=== PATIENT | female | born 1945 | race Two or more races ===

== ENCOUNTER → 2022-08-10 | Outpatient (CLI) | payer OTHER | END | disposition home or self-care (01) | LOC: RAD 14:39 | PROVIDERS: ATTEND Internal Medicine Pulmonary Disease | DX: R05.3 Chronic cough (principal); J45.20 Mild intermittent asthma, uncomplicated; M99.01 Segmental and somatic dysfunction of cervical region; M99.02 Segmental and somatic dysfunction of thoracic region; M99.03 Segmental and somatic dysfunction of lumbar region; M99.04 Segmental and somatic dysfunction of sacral region ==